=== PATIENT | female | born 1995 | race Caucasian/White ===

== ENCOUNTER 2016-12-13 10:19 | Day surgery (SDC) | payer OTHER ==
--- NOTE | 2016-12-12 19:29 | GHP ---
[f rep st] PREOP HISTORY AND PHYSICAL DATE OF ADMISSION: 12/13/2016 DATE OF PLANNED PROCEDURE: 12/13/2016. PLANNED PROCEDURE: Diagnostic laparoscopy, removal of left ovarian mass, possible left ovarian cyst ectomy, possible left salpingectomy and tubal dye study. INDICATIONS: Patient is a 21-year-old, 0, who had a Mirena IUD placed years ago. At some p oint in the last few years, she developed left lower quadrant pain. She attributed it to the Mirena IUD and so she had it removed and the pain has persisted since it has been removed. She had an ult rasound in June 2016 which noted a probable paraovarian cyst measuring 4.3 x 3.6 x 5.8 cm. The patient had her Mirena IUD removed in June and her pain has persisted since that time. Patie nt states she has constant discomfort in the left lower quadrant. The only thing that makes it feel better is pressing on it. Patient states her pain significantly increases with activity and exerci se and she has had to stop working out because of the higher level of discomfort with activity. We had a long discussion about management options. She had a repeat ultrasound performed in 10/2016 which showed a right ovary unremarkable, left ovary normal. Medial to the left ovary is a 5.4 x 4. 3 x 4.6 cm cystic mass. No flow was noted to it. This is possibly a paraovarian cyst. We had a long discussion about management options including expected management versus diagnostic la paroscopy. We talked about the possibility of this being in the fallopian tube and the need for tub al dye study to assess future fertility. Patient is agreeable to this. She would like to proceed w ith a laparoscopy and removal of that adnexal mass if indicated. Patient has been properly consente d. MEDICATIONS: Accutane. MEDICAL HISTORY: History of cystic acne. SURGICAL HISTORY: [place] tooth extraction. ALLERGIES: No known drug allergies. SOCIAL HISTORY: Patient denies tobacco or drug use. She does drink 5 alcoholic beverages a week. FAMILY MEDICAL HISTORY: Noncontributory. 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 Periods every 28 days, lasting 4-5 days. She is a 0. Sh e denies any history of any abnormal Pap smears or sexually transmitted diseases. REVIEW OF SYSTEMS: A 10-point review of systems is negative with the exception of the above-mention ed pertinent positives. PHYSICAL EXAM: VITAL SIGNS: Stable. GENERAL APPEARANCE: She is alert and oriented x3. NECK: Nec k is mobile, trachea is midline. There is no thyromegaly noted. LUNGS: Clear to auscultation bilate rally. HEART: Her heart rate is regularly irregular. ABDOMEN: Soft, nondistended, nontender. No or ganomegaly is noted. EXTREMITIES: Reveal no calf tenderness or edema. GENITOURINARY: Mobile mid p osition uterus, with some left adnexal fullness. Pelvic ultrasound was described above. ASSESSMENT AND PLAN: A 21-year-old, 0, with chronic left lower quadrant pain and an adnexal mass. She will undergo diagnostic laparoscopy and probable removal of that left adnexal mass and a possible tubal dye study. Risks and benefits of the procedure have been extensively reviewed with the patient and patient has been properly consented. /[id number]/MODL
[2016-12-13] MEDS ORDERED: LR 1,000 ML IV ONE (10:48)
[2016-12-13] MEDS ORDERED: LIDOCAINE 1% 2 ML INJ ONE (10:52)
--- NOTE | 2016-12-13 11:46 | PDANEPAE ---
ANE Past Medical History - Cardiovascular History Hx Hypertension: No Hx Arrhythmias: No Hx Chest Pain: No Hx Coronary Artery / Peripheral Vascular Disease: No Hx CHF / Valvular Disease: No Hx Palpitations: No - Pulmonary History Hx COPD: No Hx Asthma/Reactive Airway Disease: No Hx Recent Upper Respiratory Infection: No Hx Oxygen in Use at Home: No - Neurologic History Hx Cerebrovascular Accident: No Hx Seizures: No Hx Dementia: No - Endocrine History Hx Diabetes: No - Renal History Hx Renal Disorders: No - Liver History Hx Hepatic Disorders: No - Neurological & Psychiatric Hx Hx Neurological and Psychiatric Disorders: No - Cancer History Hx Cancer: No - Congenital Disorder History Hx Congenital Disorders: No - GI History Hx Gastrointestinal Disorders: No - Chronic Pain History Chronic Pain: No ANE Review of Systems - Exercise capacity METS (RN): 4 METS ANE Patient History - Allergies Allergies/Adverse Reactions: No Known Allergies Allergy (Verified 11/29/16 12:15) - Home Medications Home Medications: Multivitamin 11/29/16 [Last Taken Unknown] - NPO status NPO Since - Liquids (Date): 12/12/16 NPO Since - Liquids (Time): 22:00 NPO Since - Solids (Date): 12/12/16 NPO Since - Solids (Time): 18:00 - Smoking Hx Smoking Status: Never smoked - Family Anes Hx Family Hx Anesthesia Complications: NONE ANE Labs/Vital Signs - Vital Signs Blood Pressure: 129/77 Heart Rate: 72 Respiratory Rate: 18 O2 Sat (%): 96 Height: 172.72 cm Weight: 95.254 kg ANE Physical Exam - Airway Neck exam: FROM Mallampati Score: Class 1 Mouth exam: normal dental/mouth exam - Pulmonary Pulmonary: no respiratory distress - Cardiovascular Cardiovascular: regular rate and rhythym - ASA Status ASA Status: II
--- NOTE | 2016-12-13 11:50 | PDHPUP ---
History & Physical Update H&P update statement: This history and physical update is based on an assessment of the patient which was completed after admission or registration (within 24 hours), but prior to the surgery/procedure. H&P update: H&P reviewed & patient examined, no change in patient's condition since H&P completed
[2016-12-13] MEDS ORDERED: BUPIVACAINE 0.25% 30 ML SDV ONE (11:51)
[2016-12-13] MEDS ORDERED: SILVER NITRATE APPLICATOR 1 APPL TP ONE (11:51)
[2016-12-13] MEDS ORDERED: METHYLENE BLUE 0.5% 50 MG/10 ML AMP ONE (11:52)
[2016-12-13] MEDS ORDERED: MIDAZOLAM 2 MG/2 ML VIAL ONE ×2 (11:57→12:14)
[2016-12-13] MEDS ORDERED: PROPOFOL/EMULSION 500 MG/50 ML BOTTLE IV ONE ×2 (11:57→12:08)
[2016-12-13] MEDS ORDERED: fentaNYL 100 MCG/2 ML INJ ONE ×3 (11:57→13:48)
[2016-12-13] MEDS ORDERED: NALOXONE HCL 0.4 MG/ML INJ IVP PRN (12:26)
[2016-12-13] MEDS ORDERED: fentaNYL 100 MCG/2 ML INJ IVP PRN (12:31)
[2016-12-13] MEDS ORDERED: PROMETHAZINE HCL 25 MG/ML INJ IVP PRN (12:31)
[2016-12-13] MEDS ORDERED: MEPERIDINE 25 MG/ML SYR IVP PRN (12:31)
[2016-12-13] MEDS ORDERED: DEXAMETHASONE 4 MG/ML VIAL IVP PRN (12:31)
[2016-12-13] MEDS ORDERED: LR 500 ML IV PRN (12:31)
[2016-12-13] MEDS ORDERED: HYDROCODONE/APAP 5/325 TAB PO PRN (12:31)
[2016-12-13] MEDS ORDERED: ACETAMINOPHEN 500 MG TAB PO PRN (12:31)
[2016-12-13] MEDS ORDERED: METOCLOPRAMIDE 10 MG/2 ML VIAL IVP PRN (12:31)
[2016-12-13] MEDS ORDERED: OXYCODONE/APAP 5/325 TAB PO PRN (12:31)
[2016-12-13] MEDS ORDERED: HYDROmorphONE/DILAUDID 1 MG/ML SYR IVP PRN (12:31)
[2016-12-13] MEDS ORDERED: ALBUTEROL 3 ML DEYVIAL IH PRN (12:31)
[2016-12-13] MEDS ORDERED: ONDANSETRON 4 MG/2 ML VIAL IVP PRN (12:31)
[2016-12-13] MEDS ORDERED: METOCLOPRAMIDE 10 MG/2 ML VIAL ONE (13:08)
[2016-12-13] MEDS ORDERED: ROCURONIUM 50 MG/5 ML VIAL ONE (13:08)
[2016-12-13] MEDS ORDERED: LIDOCAINE 2% 5 ML SDV ONE (13:08)
[2016-12-13] MEDS ORDERED: RANITIDINE 50 MG/2 ML VIAL ONE (13:08)
[2016-12-13] MEDS ORDERED: KETOROLAC 30 MG/1 ML SDV ONE (13:08)
[2016-12-13] MEDS ORDERED: SUGAMMADEX SODIUM 200 MG/2 ML VIAL IVP ONE (13:08)
[2016-12-13] MEDS ORDERED: ONDANSETRON 4 MG/2 ML VIAL ONE (13:08)
[2016-12-13] MEDS ORDERED: ONDANSETRON DISINTEGRATING 4 MG TAB PO PRN (13:15)
--- NOTE | 2016-12-13 13:25 | POSTANESTH ---
Post Anesthetic Evaluation Cardiovascular Status: Normal, Stable Respiratory Status: Normal, Stable Level of Consciousness/Mental Status: Mildly Sleepy, Arousable Pain Control: Adequate, Prn Tx Ordered Nausea/Vomiting Control: Adequate, Prn Tx Ordered Complications Possibly Related to Anesthesia: None Noted
[2016-12-13 14:49] VITALS: RESP 14
[2016-12-13] MEDS ORDERED: HYDROCODONE/APAP 5/325 TAB ONE (14:56)
[2016-12-13 16:01] VITALS: BP 101/65; PULSE 96; TEMP 98.2; O2SAT 98
--- NOTE | 2016-12-13 22:22 | GOP ---
[f rep st] OPERATIVE REPORT DATE OF OPERATION: 12/13/2016 SURGEON: Kelli Sharp DO MECHANISM ASSEMBLER: Teresa Thomas MD ANESTHESIA: General endotracheal tube. ANESTHESIOLOGIST: Zamzam Fernando MD. PREOPERATIVE DIAGNOSIS: Left adnexal mass. POSTOPERATIVE DIAGNOSIS: Left adnexal mass, plus left tubal/paratubal cyst. PROCEDURE PERFORMED: Laparoscopy with left salpingectomy and removal of left paraovarian cyst and t ubal dye study. FINDINGS: 1. Exam under anesthesia: Mobile, midposition uterus with no adnexal masses. Fullness in the left lower quadrant. 2. Laparoscopic findings: Normal ovaries, uterus, and tubes with the exception of the left paraova yusef versus paratubal cyst and very elongated fallopian tubes. 1. Spill of tubal dye from the right fallopian tube. 3. SPECIMENS: Paraovarian cyst and fallopian tube. ESTIMATED BLOOD LOSS: 10 cc. INDICATIONS: Patient is a 21-year-old 0, who has had intermittent left lower quadrant pain over the last year. It has become progressively worse. She had her Mirena IUD removed to see if it would help, but it did not. She had an ultrasound in June of 2016, which showed a 4.3 x 3.6 x 5 .8 cm paraovarian cyst. She had a repeat ultrasound done a couple months later, which showed a pers istent cystic mass. Management options were reviewed with the patient. Decision was made to procee d with a laparoscopic evaluation and removal of the adnexal mass. Risks and benefits of the procedu re were reviewed with the patient. The patient was properly consented. DESCRIPTION OF PROCEDURE: Patient was taken to the operating room with intravenous fluids in place. She was then placed on the operating table in the dorsal supine position, where general anesthesia was obtained. She was then repositioned into the dorsal lithotomy position with the [place] stirr ups and prepped and draped in normal sterile fashion. Exam under anesthesia revealed a mobile mid p osition uterus, with a left adnexal fullness. A speculum was then placed in the patient's vagina. A n Allis clamp was used to grasp the anterior lip of the cervix. An [place] uterine manipulator was th en introduced, and the tubing for the tubal dye study was attached. Attention was then turned to the patient's abdomen, where a 5 mm skin incision was then made in the umbilicus. A 5 mm trocar was advanced into the patient's abdomen under direct visualization with SiOxview. The abdomen was then insufflated with CO2 gas until an adequate pneumoperitoneum was ac hieved. The area underneath the trocar insertion site was found to be unremarkable. A 5 mm skin in cision was then made in the patient's right lower quadrant under direct visualization. A 3rd 5 mm s kin incision was made in the patient's left lower quadrant under direct visualization. The overall abdomen and pelvis were unremarkable. Ovaries, uterus, and tubes were unremarkable with the excepti on of the left fallopian tube, was grossly elongated as it wrapped around the paratubal cyst that wa s attached to the ovary and to the fallopian tube. Because of concerns of future ectopic pregnancie s due to the very elongated fallopian tube and the entangled nature of the fallopian tube and fimbri ated end splayed out over the edge of the ovary, decision was made to perform a left salpingectomy. This was done with the LigaSure and it was dissected off the ovary and the salpingectomy was perfor med. Hemostasis was assured. Clear fluid was drained from the cyst. Kochers were then used to gra sp the left fallopian tube and ovary and this was drawn through the skin all intact. The pedicles w ere found to be hemostatic. Again, upper abdomen was explored, was unremarkable. The appendix was unremarkable. A tubal dye study was then performed and free flow was noted immediately to the right fallopian tube. The suction manager [employer] was then inserted and the pelvis was irrigated and the blue dye was removed. The instruments were then removed from the patient's abdomen. CO2 gas was express ed. Skin incision was then closed with 4-0 Monocryl in a subcuticular fashion. The tenaculum and A corn were removed from the cervix. No bleeding was noted. The patient was returned to dorsal supin e position where she was easily awoken from anesthesia. Sponge count was correct. The patient was transported to recovery room in stable condition. /[id number]/MODL
== END 2016-12-13 15:50 | disposition home or self-care (01) ==
LOC: FSGY 10:19
PROVIDERS: ATTEND Obstetrics & Gynecology
PROC: 0UT64ZZ Resection of Left Fallopian Tube, Percutaneous Endoscopic Approach (ICD-10-PCS; principal; 2016-12-13 12:00)
PROC: 0UB14ZX Excision of Left Ovary, Percutaneous Endoscopic Approach, Diagnostic (ICD-10-PCS; principal; 2016-12-13 12:00)
DX: N83.202 Unspecified ovarian cyst, left side (principal)
CPT/HCPCS: J1885; J2250; J2405; J2704; J2765; J2780; J3010; Q9968